=== PATIENT | female | born 1990 | race Caucasian/White ===

== ENCOUNTER 2022-03-24 03:35 | Inpatient (IN) ==
[2022-03-24 04:02] LABS: Bacteria,Urine Occasional /HPF (Few); Bilirubin,Urine Negative (Negative); Blood, Urine Large mg/dL (Negative); Glucose,Urine (UA) Negative (Negative); Ketones,Urine Negative (Negative); Nitrite,Urine Negative (Negative); Protein,Urine Negative (Negative); RBC,Urine 15-20 /HPF (0-4); Squamous Epithelial Cell,Urine Occasional /HPF (0-10); Urine Appearance Clear (Clear); Urine Color Yellow (Yellow); Urine Urobilinogen 0.2 eU/dL (<2.0)
[2022-03-24] MEDS ORDERED: MEPERIDINE 50 MG/1 ML VIAL IV PRN ×2 (04:11→04:24)
[2022-03-24] MEDS ORDERED: BUTORPHANOL 2 MG/ML VIAL IV PRN (04:11)
[2022-03-24] MEDS ORDERED: LACTATED RINGERS 500 ML IV PRN (04:11)
[2022-03-24] MEDS ORDERED: OXYTOCIN/LR 20 UNIT/1,000 ML BAG IV ONE (04:11)
[2022-03-24] MEDS ORDERED: LACTATED RINGERS 250 ML IV ONE (04:11)
[2022-03-24] MEDS ORDERED: miSOPROStoL 200 MCG TABLET RECTAL PRN (04:11)
[2022-03-24] MEDS ORDERED: TRANEXAMIC ACID 1,000 MG in SODIUM CHLORIDE 0.9% 100 ML IV PRN (04:11)
[2022-03-24] MEDS ORDERED: ONDANSETRON 4 MG/2 ML VIAL IV PRN (04:11)
[2022-03-24] MEDS ORDERED: ACETAMINOPHEN 500 MG TABLET PO PRN (04:11)
[2022-03-24] MEDS ORDERED: METHYLERGONOVINE 0.2 MG/1 ML AMP IM PRN (04:11)
[2022-03-24] MEDS ORDERED: CARBOPROST TROMETHAMINE 250 MCG/ML AMP IM PRN (04:11)
[2022-03-24] MEDS ORDERED: BUTORPHANOL 1 MG/ML VIAL IV PRN (04:11)
[2022-03-24] MEDS ORDERED: AMPICILLIN INJ 2,000 MG in SODIUM CHLORIDE 0.9% 100 ML IV ONE (05:30)
[2022-03-24] MEDS: LACTATED RINGERS 1,000 ML IV SCH ×2 (05:50→09:25)
[2022-03-24 05:51] LABS: Basophils % 0.3 % (0.0-0.8); Eosinophils # 0.1 10*3/uL (0.0-0.87); Eosinophils % 0.9 % (0.00-10.9); Hematocrit 33.6 VOL% (35.7-47.0); Hemoglobin 10.7 GM/DL (12.0-16.0); Immature Granulocytes % 0.6 %; Immature Granulocytes Absolute 0.07 #; Lymphocytes # 2.6 10*3/uL (1.4-4.0); Lymphocytes % 22.8 % (21.3-54.2); Mean Corpuscular HGB Conc 31.8 GM/DL (32-36); Mean Platelet Volume 11.3 FL (9.6-12.0); Monocytes # 0.7 10*3/uL (0.11-0.8); Monocytes % 6.4 % (1.7-12.7); Platelet Count 267 T/CUMM (130-400); Red Cell Distribution Width 14.2 % (9.3-17.3); White Blood Count 11.6 T/CUMM (4-12)
[2022-03-24 06:07] LABS: Alanine Aminotransferase 13 U/L (13-56); Albumin 2.7 G/DL (3.4-5.0); Alkaline Phosphatase 277 U/L (45-117); Aspartate Amino Transferase 12 U/L (0-37); Bilirubin,Total < 0.39 MG/DL (0.20-1.00); Blood Urea Nitrogen 6 MG/DL (7-18); Calcium 8.6 MG/DL (8.5-10.1); Carbon Dioxide 19 MMOL/L (21-32); Chloride 107 MMOL/L (98-107); Glucose 82 MG/DL (74-106); Osmolality,Calculated 271.7 MOS/KG (273-304); Potassium 3.5 MMOL/L (3.5-5.1); Sodium 138 MMOL/L (136-145); Total Protein 6.9 G/DL (6.4-8.2)
[2022-03-24] MEDS ORDERED: PROMETHAZINE 25 MG/1 ML VIAL IM PRN (08:16)
[2022-03-24] MEDS ORDERED: ePHEDrine 50 MG/ML VIAL IV PRN (08:16)
[2022-03-24] MEDS ORDERED: diphenhydrAMINE 50 MG/1 ML VIAL IV PRN (08:16)
[2022-03-24] MEDS ORDERED: NALOXONE 0.4 MG/ML VIAL IV PRN (08:16)
[2022-03-24] MEDS ORDERED: hydrOXYzine HCL 25 MG/1 ML VIAL IM PRN (08:16)
[2022-03-24] MEDS ORDERED: CITRIC ACID/SODIUM CITRATE 30 ML UDCUP PO ONE (08:16)
[2022-03-24] MEDS ORDERED: FAMOTIDINE 20 MG/2 ML VIAL IV ONE (08:19)
[2022-03-24] MEDS ORDERED: fentaNYL 2 MCG/ROPIV 0.2% EPID 100 ML EPIDURAL SCH (08:30)
[2022-03-24] MEDS ORDERED: AMPICILLIN INJ 1,000 MG in SODIUM CHLORIDE 0.9% 100 ML IV SCH (09:30)
[2022-03-24] MEDS: OXYTOCIN/LR 20 UNIT/1,000 ML BAG IV SCH ×2 (10:19→17:36)
[2022-03-24 14:36] LABS: Cord Venous Blood HCO3 23.3 MMOL/L; Cord Venous Blood PCO2 38.2 MMHG; Cord Venous Blood PO2 31.9
[2022-03-24] MEDS: IBUPROFEN 800 MG TABLET PO PRN (20:23)
[2022-03-24] MEDS: ACETAMINOPHEN/CODEINE 300-30 MG TABLET PO PRN (20:30)
[2022-03-25] MEDS: IBUPROFEN 800 MG TABLET PO PRN (03:59)
[2022-03-25 06:25] LABS: Basophils % 0.3 % (0.0-0.8); Eosinophils # 0.1 10*3/uL (0.0-0.87); Hematocrit 27.3 VOL% (35.7-47.0); Hemoglobin 8.8 GM/DL (12.0-16.0); Immature Granulocytes % 0.6 %; Immature Granulocytes Absolute 0.08 #; Lymphocytes # 2.9 10*3/uL (1.4-4.0); Lymphocytes % 21.6 % (21.3-54.2); Mean Corpuscular HGB Conc 32.2 GM/DL (32-36); Mean Platelet Volume 11.5 FL (9.6-12.0); Monocytes # 0.7 10*3/uL (0.11-0.8); Monocytes % 5.1 % (1.7-12.7); Neutrophils % 71.4 % (38.7-73.9); Platelet Count 198 T/CUMM (130-400); Red Blood Count 3.21 MC/CUMM (3.8-5.5); Red Cell Distribution Width 14.4 % (9.3-17.3); White Blood Count 13.5 T/CUMM (4-12)
[2022-03-25] MEDS: LEVOTHYROXINE 50 MCG TABLET PO SCH (10:20)
[2022-03-25] MEDS: ACETAMINOPHEN/CODEINE 300-30 MG TABLET PO PRN ×2 (13:45→21:24)
[2022-03-26] MEDS: ACETAMINOPHEN/CODEINE 300-30 MG TABLET PO PRN (05:26)
[2022-03-26] MEDS: LEVOTHYROXINE 50 MCG TABLET PO SCH ×2 (05:28→06:41)
[2022-03-26] MEDS ORDERED: DOCUSATE SODIUM 100 MG CAPSULE PO PRN (07:10)
[2022-03-26 08:38] VITALS: BP 121/71
[2022-03-26] MEDS ORDERED: DIPH/TET/ACEL PERT BOOSTER VACCINE 0.5 ML VIAL IM ONE (09:11)
== END 2022-03-26 11:32 | disposition home or self-care (01) | DRG 807 ==
LOC: N.LD 03:35 → N.OB 17:40
PROVIDERS: ADMIT Specialist; ATTEND Specialist